=== PATIENT | female | born 1940 | race African-American/Black ===

== ENCOUNTER 2018-06-22 09:54 | Observation (INO) | payer MEDICARE, BC, OTHER ==
[~2018-06-22] VITALS: Ht 157.5 cm; Wt 60.8 kg
--- NOTE | ~2018-06-22 | H ---
[address] [address] HISTORY AND PHYSICAL Name: WILLIS MEDINA Room: [address] Franco Colbert#: [id number] Admission: 06/22/18 Attend Phys: Daryl Aguila DO Discharge: 06/23/18 Date of : 42 Report #: [id number] THIS REPORT FOR: //name// See surgical assessment. By: [id number] Records Staff JAVAD /SHERRY
[~2018-06-22 09:54] MED LIST: APAP650 PO; ASPIR 8181 MG PO; COZAAR 50 MG TA50 M2 PO; FLONASE 0.05%50 MCG NASAL; HYDROCHLOROTHIA25 M2 PO; PROTONIX40 M1 PO; TRAMADOL 50 MG50 MG PO; UNICOMPLEX M TA1 TA1 PO; VERAPAMIL E.R240 M1 PO; VITAMIN B-1100 M1 PO; VITAMIN D 5050000 I1 PO; XALATAN2.5 ML OPHTHALMIC
[2018-06-22 10:18] LABS: HEMATOCRIT 39.7 % (37.0-47.0); HEMOGLOBIN 13.1 gm/dL (12.0-15.0); MCH 32.6 pg (26.0-34.0); MCHC 33.1 g/dL (28.0-37.0); MCV 98.4 fL (80.0-100.0); MPV 8.8 fl. (7.2-11.1); RBC 4.03 mil/uL (4.20-5.00); RDW-CV 13.5 % (10.5-14.5); WBC 6.2 thou/uL (4.0-11.0)
[2018-06-22 10:27] LABS: CALCIUM 9.7 mg/dL (8.5-10.1); CREATININE 1.1 mg/dL (0.6-1.3)
[2018-06-22 10:30] LABS: POTASSIUM 2.5 mmol/L (3.5-5.1)
[2018-06-22 12:00] VITALS: BP 148/99
--- NOTE | 2018-06-22 13:54 | EKG ---
[place] [address] ELECTROCARDIOGRAM REPORT Name: WILLIS MEDINA Room: [address]R.#: [id number] Admission: 06/22/18 Attend Phys: Daryl Aguila DO Discharge: Date of : 42 Report #: [id number] THIS REPORT FOR: //name// [facility] Test Date: 2018-06-22 Test Time: 10:30:32 Pat Name: WILLIS MEDINA Department: Room: [facility] Gender: F Nursing Executive: NIMA : 1940 Requested By: Daryl Aguila Order Number: [id number] Bridgette MD: Matt Casillas Measurements Intervals [place] Rate: 89 P: 7 [place]: 170 QRS: -54 QRSD: 109 T: 58 QT: 410 QTc: 499 Interpretive Statements Sinus rhythm Inferior infarct, old Consider anterior infarct Baseline wander in lead(s) V2 Compared to ECG 02/09/2017 11:21:06 no change Electronically Signed On 06-22-2018 13:54:43 REAL PROPERTY EVALUATOR by Matt Casillas [email or web address] <ELECTRONICALLY SIGNED> By: Matt Casillas MD, FAC 06/22/18 1354 1030 1030 Matt Casillas MD, [facility] /EPI
[2018-06-22 15:56] VITALS: BP 149/92
--- NOTE | 2018-06-22 16:45 | NUR ---
PATIENT ARRIVED ON UNIT AT 1300. SHE WAS STAYING FOR LOW MAG AND K+. REPLACED MAG AND K+ IV. LAB REDRAW WILL BE AT 1900. WILL CALL WITH RESULTS. PATIENT HAS TOLERATED IV REPLACEMENT. TOLERATED DIET, NO NAUSEA AND VOMITING. VOIDED AND PASSED BM WITHOUT ISSUE. COMPLETED HOURLY ROUNDING. CALL LIGHT WITHIN REACH. WILL CONTINUE TO MONITOR.
[2018-06-22 18:54] LABS: MAGNESIUM 2.1 mg/dL (1.8-2.4)
[2018-06-22 19:05] LABS: POTASSIUM 2.4 mmol/L (3.5-5.1)
[2018-06-22 19:30] VITALS: BP 143/90
--- NOTE | 2018-06-22 22:26 | NUR ---
RECIEVED REPORT AND ASSUMED CARE OF PT AT 1930. OBTAINED ORDERS FROM DR CAMARA FOR ELECTROLYTE REPLACE MENT PROTOCOL. CRITICAL POTASSIUM CALLED AT 1914. RESULT 2.4. PT STARTED ON IV POTASSIUM AT 1929 VIA IV. SPOKE WITH PT'S DAUGHTER REGARDING CONDITION. SPOKE WITH DR PERSAUD REGARDING POTASSIUM REPLACEMENT. PT DENIES PAIN OR DISCOFORT, CALL LIGHT IN REACH. PT USING APPROPRIATELY.
[2018-06-23 00:14] VITALS: BP 128/77
[2018-06-23 04:00] VITALS: BP 120/85
[2018-06-23 05:47] LABS: HEMATOCRIT 34.2 % (37.0-47.0); HEMOGLOBIN 11.5 gm/dL (12.0-15.0); MCHC 33.5 g/dL (28.0-37.0); MCV 98.5 fL (80.0-100.0); MPV 8.8 fl. (7.2-11.1); RBC 3.48 mil/uL (4.20-5.00); RDW-CV 13.7 % (10.5-14.5); WBC 4.7 thou/uL (4.0-11.0)
[2018-06-23 06:08] LABS: CALCIUM 8.3 mg/dL (8.5-10.1); CREATININE 0.8 mg/dL (0.6-1.3); MAGNESIUM 1.8 mg/dL (1.8-2.4); POTASSIUM 5.3 mmol/L (3.5-5.1)
--- NOTE | 2018-06-23 06:26 | NUR ---
PT RECIEVED POTASSIUM REPLACEMENT THROUGHOUT SHIFT. PT'S POTASSIUM RESULT THIS MORNING AT 5.3. IV POTASSIUM DISCONTINUED. IV FLUIDS CONTAINING POTASSIUM DISCONTINUED. PT NPO AFTER MIDNIGHT FOR EGD TODAY. VITAL SIGNS STABLE, NO ACUTE CHANGES, WILL CONTINUE TO MONITOR.
[2018-06-23] MEDS ORDERED: CARAFATE 1 GM TA1 G1 PO (09:01)
[2018-06-23 09:31] VITALS: BP 120/85
[2018-06-23 09:45] VITALS: BP 128/78
--- NOTE | 2018-06-23 12:21 | NUR ---
VSS-AFEBRILE POST EGD. ROOM AIR, CLEAR LUNG SOUNDS IN ALL QUADS BILATERALLY. DAUGHTERS AT BEDSIDE. ABLE TO EAT YOGURT AND DRINK WATER WITHOUT ANY N/V, OR DIFFICULTY SWALLOWING. ADMINISTERED FLU SHOT PER ORDERS AND BY PATIENT REQUEST. DISCUSSED DC INSTRUCTIONS, ALL PRESENT VERBALIZED UNDERSTANDING. LEFT HOPSPITAL IN PRIVATE VEHICLE WITH DAUGHTERS AND ALL PERSONAL BELONGINGS.
== END 2018-06-23 10:05 | disposition home or self-care (01) ==
LOC: M.SUR 09:54 → M.ORTHSURG 12:39 → M.SUR 13:51 → M.ORTHSURG 06-23 10:05
PROVIDERS: ADMIT Internal Medicine Gastroenterology
DX: K22.0 Achalasia of cardia (principal); K44.9 Diaphragmatic hernia without obstruction or gangrene; R13.14 Dysphagia, pharyngoesophageal phase; R63.4 Abnormal weight loss; I10 Essential (primary) hypertension; R00.0 Tachycardia, unspecified; E87.6 Hypokalemia; E83.42 Hypomagnesemia; E86.0 Dehydration; Z98.84 Bariatric surgery status

== ENCOUNTER → 2019-01-04 | Day surgery (SDC) | payer MEDICARE, BC, OTHER ==
[~2019-01-04] MED LIST changes: +CARAFATE 1 GM TA1 G1 PO; +DIPROLENE 0.05%15 GM TOP; +EFFEXOR XR75 MG PO; +FOLIC ACID1 MG PO; +KEPPRA 500 MG500 M1 PO; +VERAPAMIL ER120 MG PO; +VITAMIN D2000 UNIT PO
--- NOTE | ~2019-01-04 | PROC ---
[facility] [address] [place] [address] PROCEDURE REPORT Name: WILLIS MEDINA Room: [facility].#: [id number] Admission: 01/04/19 Attend Phys: Daryl Aguila DO Discharge: Date of : 42 Report #: [id number] THIS REPORT FOR: //name// For GI report, please see the Provation report in Perceptive 7 content. By: [id number] Records Staff [facility] /SHERRY
[2019-01-04 09:47] LABS: HEMATOCRIT 35.8 % (37.0-47.0); HEMOGLOBIN 11.7 gm/dL (12.0-15.0); MCH 29.5 pg (26.0-34.0); MCHC 32.7 g/dL (28.0-37.0); MCV 90.2 fL (80.0-100.0); MPV 8.6 fl. (7.2-11.1); RBC 3.96 mil/uL (4.20-5.00); RDW-CV 13.1 % (10.5-14.5); WBC 3.2 thou/uL (4.0-11.0)
[2019-01-04 09:51] LABS: CALCIUM 9.5 mg/dL (8.5-10.1); CREATININE 0.8 mg/dL (0.6-1.3); POTASSIUM 3.5 mmol/L (3.5-5.1)
--- NOTE | 2019-01-04 16:46 | EKG ---
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: : 1940 Requested By: Daryl Aguila Order Number: [id number] Reading MD: Ibrahima Ndiaye Measurements Intervals [place] Rate: 76 P: 19 [place]: 207 QRS: -44 QRSD: 106 T: 36 QT: 423 QTc: 476 Interpretive Statements Sinus rhythm Left axis deviation Compared to ECG 06/22/2018 10:30:32 Left-axis deviation now present Myocardial infarct finding no longer present Electronically Signed On 01-04-2019 16:45:52 CDT by Ibrahima Ndiaye [email or web address] <ELECTRONICALLY SIGNED> By: Ibrahima Ndiaye MD, [facility] 01/04/19 0660 0936 0936 Ibrahima Ndiaye MD, FAC /EPI
--- NOTE | 2019-01-07 14:06 | PATH ---
[address] [address] PATHOLOGY RPT PROCEDURE Name: WILLIS MEDINA Room: [facility]..#: [id number] Admission: 01/04/19 Date of : 42 Discharge: Report #: [id number] Path Case #: [id number] [facility] Accession Number: [id number] . 01 Material submitted: . PART A: colon - PROXIMAL TRANSVERSE COLON POLYP. Modifiers: transverse, proximal PART B: colon - PROXIMAL ASCENDING COLON POLYP. Modifiers: proximal, ascending PART C: colon - MID-TRANSVERSE COLON POLYP. Modifiers: mid, transverse . 01 Clinician provided ICD-10: K22.0 Z86.010 . 01 Clinical history: . Achalasia, personal Hx of polyps . 02 Diagnosis: A. Colon, proximal transverse, biopsy: - Adenomatous polyp. . B. Colon, proximal ascending, biopsy: - Adenomatous polyp. . C. Colon, mid transverse, biopsy: - Adenomatous polyps, 2. (OSMAR:soila; 01/07/2019) QMS/01/07/2019 . 02 Electronically signed: . Natan Keller MD, Pathologist NPI- [id number] . 01 Gross description: . A. Received in formalin labeled "Willis Medina, proximal transverse colon polyp," is a single segment of hernandez soft tissue measuring 0.5 cm in maximum dimension. The specimen is entirely submitted in cassette A1. . B. Received in formalin labeled "Willis Medina, proximal ascending colon polyp," is a single segment of hernandez soft tissue measuring 0.5 cm in maximum dimension. The specimen is entirely submitted in cassette B1. . C. Received in formalin labeled "Willis Medina, mid-transverse colon polyp," is a 0.6 x 0.4 x 0.4 cm polypoid piece of hernandez soft tissue. The margin is inked and the tissue is sectioned perpendicular to the margin and submitted entirely in cassette C1. Additionally received in the same container is a single segment of hernandez soft tissue measuring 0.5 [place] [address] PATHOLOGY RPT PROCEDURE Name: WILLIS MEDINA RUTH Room: [facility].#: [id number] Admission: 01/04/19 Date of : 42 Discharge: Report #: [id number] Path Case #: [id number] greatest dimension. The specimen is submitted entirely in cassette C2. (TSD; 01/04/2019) TOB/TOB . 02 Pathologist provided ICD-10: D12.3, D12.2, K22.0, Z86.010 . 02 CPT . 925398, 476750, [id number] Specimen Comment: A courtesy copy of this report has been sent to Specimen Comment: [phone], . Specimen Comment: Report sent to / DR MITCHELL Performed at: [address], [place] [id number] MD Lorenzo Guzman MD Phone: [phone] Performed at: 02 [facility] [address], [place], [place] [address] MD Monico Larkin MD Phone: [phone]
== END | disposition home or self-care (01) ==
LOC: M.SUR 07:02
PROVIDERS: Internal Medicine Gastroenterology
DX: Z12.11 Encounter for screening for malignant neoplasm of colon (principal); K22.0 Achalasia of cardia; D12.2 Benign neoplasm of ascending colon; D12.3 Benign neoplasm of transverse colon; K57.30 Diverticulosis of large intestine without perforation or abscess without bleeding; K64.4 Residual hemorrhoidal skin tags; Z93.1 Gastrostomy status; Z88.6 Allergy status to analgesic agent; Z79.899 Other long term (current) drug therapy; Z98.890 Other specified postprocedural states

== ENCOUNTER → 2019-08-05 | Day surgery (SDC) | payer MEDICARE, BC, OTHER ==
[2019-08-05 09:31] LABS: HEMOGLOBIN 12.1 gm/dL (12.0-15.0); MCH 35.1 pg (26.0-34.0); MCHC 33.5 g/dL (28.0-37.0); MCV 104.6 fL (80.0-100.0); MPV 8.6 fl. (7.2-11.1); RBC 3.44 mil/uL (4.20-5.00); RDW-CV 13.8 % (10.5-14.5); WBC 2.7 thou/uL (4.0-11.0)
[2019-08-05 09:37] LABS: CALCIUM 8.7 mg/dL (8.5-10.1); CREATININE 0.9 mg/dL (0.6-1.3); POTASSIUM 3.9 mmol/L (3.5-5.1)
[2019-08-05 11:41] LABS: ALBUMIN 3.2 g/dL (3.4-5.0); DIRECT BILIRUBIN 0.3 mg/dL (<0.1-0.3); TOTAL BILIRUBIN 1.4 mg/dL (<0.1-1.0); TOTAL PROTEIN 6.5 g/dL (6.4-8.2)
--- NOTE | 2019-08-05 16:52 | EKG ---
[place] [address] ELECTROCARDIOGRAM REPORT Name: WILLIS MEDINA Room: [facility]#: [id number] Admission: 08/05/19 Attend Phys: Daryl Aguila, Discharge: Date of : 42 Date of Service: 08/05/19 0853 Report #: [id number] THIS REPORT FOR: //name// [facility] Test Date: 2019-08-05 Test Time: 08:53:51 Pat Name: WILLIS MEDINA Department: Room: Gender: F Project Mgr: : 1940 Requested By: Shay Agrawal Order Number: [id number] Bridgette MD: Ibrahima Ndiaye Measurements Intervals [place] Rate: 75 P: -37 [place]: 147 QRS: -46 QRSD: 107 T: 31 QT: 421 QTc: 471 Interpretive Statements Sinus rhythm Inferior infarct, old Compared to ECG 01/04/2019 09:36:31 Myocardial infarct finding now present Left-axis deviation persists Electronically Signed On 08-05-2019 16:51:34 REPAIRER KILN CAR by Ibrahima Ndiaye [email or web address] <ELECTRONICALLY SIGNED> By: Ibrahima Ndiaye MD, [facility] 08/05/19 1651 0853 0853 Ibrahima Ndiaye MD, [facility] /EPI
== END | disposition home or self-care (01) ==
LOC: M.SUR 05:38
PROVIDERS: Anesthesiology; Internal Medicine Gastroenterology
DX: K22.0 Achalasia of cardia (principal); R13.14 Dysphagia, pharyngoesophageal phase; K44.9 Diaphragmatic hernia without obstruction or gangrene; K21.9 Gastro-esophageal reflux disease without esophagitis; I10 Essential (primary) hypertension; H40.9 Unspecified glaucoma; Z98.0 Intestinal bypass and anastomosis status; Z98.890 Other specified postprocedural states; Z79.899 Other long term (current) drug therapy; Z88.6 Allergy status to analgesic agent; Z86.73 Personal history of transient ischemic attack (TIA), and cerebral infarction without residual deficits; Z90.49 Acquired absence of other specified parts of digestive tract; Z90.710 Acquired absence of both cervix and uterus; Z98.41 Cataract extraction status, right eye; Z96.1 Presence of intraocular lens; Z89.511 Acquired absence of right leg below knee; Z89.512 Acquired absence of left leg below knee

== ENCOUNTER → 2019-11-14 | Day surgery (SDC) | payer MEDICARE, BC ==
[~2019-11-14] MED LIST changes: +VIMPAT50 MG PO
--- NOTE | ~2019-11-14 | PROC ---
[facility] [address] [place] [address] PROCEDURE REPORT Name: WILLIS MEDINA RUTH Room: [facility].#: [id number] Admission: 11/14/19 Attend Phys: Daryl Aguila DO Discharge: Date of : 42 Report #: [id number] THIS REPORT FOR: //name// cc: Marco Anaya MD, Vinod N. MD ~ THIS REPORT FOR: //name// For GI report, please see the Provation report in Perceptive 7 content. By: [facility]7Medical Records Staff TRACI /SHERRY
[2019-11-14 10:11] LABS: HEMATOCRIT 39.8 % (37.0-47.0); HEMOGLOBIN 13.4 gm/dL (12.0-15.0); MCH 33.1 pg (26.0-34.0); MCHC 33.6 g/dL (28.0-37.0); MCV 98.6 fL (80.0-100.0); MPV 8.7 fl. (7.2-11.1); RBC 4.04 mil/uL (4.20-5.00); RDW-CV 17.8 % (10.5-14.5); WBC 4.7 thou/uL (4.0-11.0)
[2019-11-14 10:14] LABS: CALCIUM 8.6 mg/dL (8.5-10.1); CREATININE 0.8 mg/dL (0.6-1.3); POTASSIUM 4.5 mmol/L (3.5-5.1)
[2019-11-14 11:35] LABS: ALBUMIN 3.4 g/dL (3.4-5.0); DIRECT BILIRUBIN 0.2 mg/dL (<0.1-0.3); TOTAL BILIRUBIN 0.7 mg/dL (<0.1-1.0); TOTAL PROTEIN 7.8 g/dL (6.4-8.2)
--- NOTE | 2019-11-14 16:27 | EKG ---
[place] [address] ELECTROCARDIOGRAM REPORT Name: WILLIS MEDINA Room: [facility]#: [id number] Admission: 11/14/19 Attend Phys: Daryl Aguila, Discharge: Date of : 42 Date of Service: 11/14/19 1006 Report #: [id number] THIS REPORT FOR: //name// [facility] Test Date: 2019-11-14 Test Time: 10:06:18 Pat Name: WILLIS MEDINA Department: Room: Gender: F Inside Steward/Stewardess: ADWOA : 1940 Requested By: Daryl Aguila Order Number: [id number] Reading MD: Ibrahima Ndiaye Measurements Intervals [place] Rate: 87 P: 45 [place]: 166 QRS: -51 QRSD: 108 T: 46 QT: 385 QTc: 463 Interpretive Statements Sinus rhythm LAD, consider left anterior fascicular block Borderline T wave abnormalities Compared to ECG 08/05/2019 08:53:51 T-wave abnormality now present Myocardial infarct finding no longer present Electronically Signed On 11-14-2019 16:24:56 CDT by Ibrahima Ndiaye [email or web address] <ELECTRONICALLY SIGNED> By: Ibrahima Ndiaye MD, [facility] 11/14/19 1624 1006 1006 Ibrahima Ndiaye MD, [facility] /EPI
== END | disposition home or self-care (01) ==
LOC: M.SUR 09:41 → M.SURMM 10:45
PROVIDERS: Internal Medicine Gastroenterology
DX: R13.14 Dysphagia, pharyngoesophageal phase (principal); R63.4 Abnormal weight loss; R11.2 Nausea with vomiting, unspecified; R63.0 Anorexia; R07.9 Chest pain, unspecified; K22.9 Disease of esophagus, unspecified; I10 Essential (primary) hypertension; R56.9 Unspecified convulsions; H40.9 Unspecified glaucoma; Z98.0 Intestinal bypass and anastomosis status; Z98.890 Other specified postprocedural states; Z11.59 Encounter for screening for other viral diseases; Z90.49 Acquired absence of other specified parts of digestive tract; Z79.899 Other long term (current) drug therapy; Z88.8 Allergy status to other drugs, medicaments and biological substances

== ENCOUNTER → 2021-05-03 | Day surgery (SDC) | payer MEDICARE, BC ==
[~2021-05-03] MED LIST changes: +CELEBREX 200 M200 M1 PO; +CHLORTHALIDONE25 MG PO; +COZAAR 50 MG TA50 M1 PO; +PRED FORTE5 ML OPHTHALMIC; +REMERON15 M2 PO; +VIMPAT150 MG PO
--- NOTE | ~2021-05-03 | PROC ---
[facility] [address] [place] [address] PROCEDURE REPORT Name: WILLIS MEDINA Room: [facility].#: [id number] Admission: 05/03/21 Attend Phys: Daryl Aguila DO Discharge: Date of : 42 Report #: [id number] THIS REPORT FOR: cc: Marco Anaya MD, Vinod N. MD [facility],Medical Records Staff ~ For GI report, please see the Provation report in Perceptive 7 content. By: [id number] Records Staff TRACI /SHERRY
[2021-05-03 09:46] LABS: HEMATOCRIT 34.1 % (37.0-47.0); HEMOGLOBIN 11.3 gm/dL (12.0-15.0); MCH 28.3 pg (26.0-34.0); MCHC 33.2 g/dL (28.0-37.0); MCV 85.3 fL (80.0-100.0); MPV 7.4 fl. (7.2-11.1); RDW-CV 13.9 % (10.5-14.5)
[2021-05-03 09:57] LABS: CALCIUM 9.2 mg/dL (8.5-10.1); CREATININE 1.1 mg/dL (0.6-1.3); POTASSIUM 3.6 mmol/L (3.5-5.1)
== END | disposition home or self-care (01) ==
LOC: M.SUR 07:35
PROVIDERS: ATTEND Internal Medicine Gastroenterology
DX: K22.0 Achalasia of cardia (principal); K44.9 Diaphragmatic hernia without obstruction or gangrene; Z98.84 Bariatric surgery status; Z79.899 Other long term (current) drug therapy; Z88.8 Allergy status to other drugs, medicaments and biological substances